=== PATIENT | male | born 1995 | race Asian ===

== ENCOUNTER 2018-05-09 11:00 | Emergency (ER) | payer OTHER ==
--- NOTE | 2018-05-09 11:13 | EDPHY ---
H & P Time Seen by Provider: 05/09/18 11:02 HPI/ROS: CLINICAL IMPRESSION: Left shoulder dislocation ASSESSMENT/PLAN: 22-year-old male presents to the emergency department by ambulance from [place] where he sustained a fall while snowboarding landed directly on his left elbow. I met EMS on arrival. Patient clinically has an anterior left shoulder dislocation. I was able to successfully reduce this using Metz technique with scapular manipulation. Patient tolerated procedure well. Post reduction x -rays confirm successful reduction with no evidence of Hill-Sachs lesion or fracture. Neurovascular exam prior to and post reduction is intact. Patient was placed in a sling and given orthopedic referral. Warning signs return to ED sooner alignment discharge. DIFFERENTIAL DX: Differential includes but not limited to shoulder dislocation, Hill-Sachs lesion , humerus fracture ED PROCEDURES: Procedure: Splint placement. A left arm sling was applied to left shoulder by security installation technician, supervised by myself. After application of the splint I returned and re-examined the patient. The splint was adequately immobilizing the joint and distal to the splint the patient's circulation and sensation was intact. Procedure: Dislocation reduction. The dislocation of the left shoulder was reduced using Metz with direct traction and scapular manipulation technique without complications. Post reduction the patient's neurovascular exam is normal. Post reduction x-ray demonstrates reduction of the joint to the anatomic position. Neurovascular exam remains intact The procedure was performed by myself. ED COURSE: Review post reduction x-rays by myself shows successful reduction. CHIEF COMPLAINT: Left shoulder pain HPI: 22-year-old male presents to the Emergency Department by ambulance after he fell snowboarding at [facility] landing directly on the left shoulder. Patient sustained a closed left shoulder dislocation. He has no complaints of sensory loss or weakness to the arm. He was wearing a helmet. He denies any other injury. No prior shoulder dislocation or shoulder surgery. He is visiting from [place] PAST MEDICAL HISTORY: None reported Pertinent Past Surgical History: No prior Ortho surgery Social History: Student at [employer], visiting our area, nonsmoker otherwise healthy REVIEW OF SYSTEMS: All other systems negative Constitutional: No fever, no chills Musculoskeletal: No deformity, + joint pain Skin: No rashes, color change or open wounds. Neurological: No sensory loss or weakness. PHYSICAL EXAM: General Appearance: Alert, oriented, appropriate for age, cooperative, NAD, well hydrated, non-toxic appearing, VSS, no hypoxia. Neurological: Alert and oriented x 3, normal sensation and strength of extremities Skin: Warm, dry, no rashes, no nodules on palpation. Musculoskeletal: Obvious anterior shoulder dislocation on initial exam. Intact sensation to the deltoid. No humerus or elbow pain. Distal neurovascular exam intact, wireless development manager strength 4/5 on left compared to right. MEDICAL DECISION MAKING: Patient was seen independently. Secondary supervising physician at time of evaluation was Dr. Wright . Diagnosis: Left shoulder dislocation. New, requires workup Summary: See assessment and plan for summary of ED visit Independent visualization of images, tracing, or specimens yes. Patient Progress: Improved. Smoking Status: Never smoked Constitutional: Initial Vital Signs Temperature (C) 36.7 C 05/09/18 11:04 Heart Rate 73 05/09/18 11:04 Respiratory Rate 16 05/09/18 11:04 Blood Pressure 146/88 H 05/09/18 11:04 O2 Sat (%) 96 05/09/18 11:04 O2 Delivery Mode Room Air Allergies/Adverse Reactions: No Known Allergies Allergy (Unverified 05/09/18 11:04) Home Medications: Medication Instructions Recorded NK [No Known Home Meds] 05/09/18 MDM/Departure - MDM Imaging Results: Imaging Impressions Shoulder X-Ray 05/09/18 11:08 Impression: No evidence for acute osseous abnormality left shoulder. Imaging: I viewed and interpreted images myself - Depart Disposition: Home, Routine, Self-Care Clinical Impression: Shoulder dislocation Qualifiers: Encounter type: initial encounter Laterality: left Qualified Code(s): S43.005A - Unspecified dislocation of left shoulder joint, initial encounter Condition: Good Instructions: Shoulder Dislocation (ED) Additional Instructions: DISCHARGE INSTRUCTIONS FROM YOUR DOCTOR Thank you for visiting our emergency department today. Please keep in mind that discharge from the emergency department does not mean that there is nothing wrong - it simply means that we have not identified an emergency condition that requires further evaluation or treatment in the hospital. You should always plan to follow up with primary care for re-evaluation of your condition in the next 2-3 days. If you have been referred to a specialist, please call as soon as possible (today or tomorrow) to schedule your follow up appointment at the appropriate time. YOU HAD A LEFT ANTERIOR SHOULDER DISLOCATION THAT WAS REDUCED IN THE EMERGENCY ROOM. PLEASE KEEP YOUR ARM IN THE SLING UNTIL YOU CAN FOLLOW UP WITH ORTHOPEDICS BACK HOME. WE DID GIVE A LOCAL ORTHOPEDIC REFERRAL IF YOU NEEDED. REST AND ELEVATE THE AFFECTED EXTREMITY MUCH POSSIBLE. ICE THE AFFECTED AREAS 20 MIN ON, 20 MIN OFF FOR THE NEXT SEVERAL DAYS. PLEASE USE TYLENOL OR IBUPROFEN OVER THE COUNTER IN APPROPRIATE DOSES OUTLINED ON YOUR DISCHARGE PAPERS. TAKE IBUPROFEN WITH FOOD AND A LARGE GLASS OF WATER. RETURN TO THE EMERGENCY DEPARTMENT FOR SEVERE ARM OR SHOULDER PAIN, SIGNIFICANT ARM OR SHOULDER SWELLING, LOSS OF SENSATION TO THE HAND FINGERS OR ARM, FEVERS OR ANY OTHER CONCERN. People present with illnesses and injuries in different ways, and it is always possible that we have missed something. You may always return for re-evaluation if symptoms worsen or if they are not improving or if you develop new/different symptoms. Again, thank you for choosing our emergency department. We hope that you feel better. Referrals: Patient,NotPresent [Unknown] - As per Instructions Levy Hooks MD [Medical Doctor] - As per Instructions
[2018-05-09 11:58] VITALS: BP 133/76
== END 2018-05-09 11:58 | disposition home or self-care (01) ==
PROC: 0RSKXZZ Reposition Left Shoulder Joint, External Approach (ICD-10-PCS; principal; 2018-05-09)
DX: S43.005A Unspecified dislocation of left shoulder joint, initial encounter (principal); V00.311A Fall from snowboard, initial encounter; Y93.23 Activity, snow (alpine) (downhill) skiing, snowboarding, sledding, tobogganing and snow tubing; Y92.828 Other wilderness area as the place of occurrence of the external cause; Y99.8 Other external cause status
CPT/HCPCS: L3980